=== PATIENT | male | born 1965 | race Caucasian/White ===

== ENCOUNTER 2024-03-13 01:20 | Emergency (ER) | payer BC, SELFPAY ==
[2024-03-13] VITALS (11 sets, daily range): BP systolic 155–192; BP diastolic 110–128; BMI 35.9
--- NOTE | 2024-03-13 01:54 | ED.GENMED ---
History of Present Illness
<Nneka Slaughter DO - Last Filed: 03/13/24 03:34>
General
Chief Complaint: Breathing Problem
Time Seen by Provider: 03/13/24 01:39
History of Present Illness
History of Present Illness:
58-year-old male with history of sleep apnea on CPAP and history of pituitary adenoma presenting to the emergency department for difficulty breathing and chest pressure. Patient reports symptoms started around midnight. He reports pressure across
his chest, difficulty catching his breath. Reports that he has had similar symptoms in the past, which have been attributed to panic/anxiety, however he feels that this is worse than typical. Also notes that his blood pressure has been elevated.
He denies any known history of cardiac disease. He denies any history of blood clot, recent surgery, recent travel. He denies any cough or fever, does note some nasal congestion. He does admit to feeling anxious, however feels that his anxiety is
from having difficulty breathing. Reports that he has not seen a doctor in about 2 years. Denies abdominal pain or GI symptoms. Denies additional acute medical complaints.
Past History
<DO Nathalia Harris Last Filed: 03/13/24 03:34>
Past History
ED Past Medical History: Other (diastasis rectus); Negative Asthma, HTN, Hypercholesterolemia or NIDDM
ED Past Surgical History: None
Social History
Tobacco: Non-smoker
Alcohol: Occasional
Personal:
Living: with family
Phy Exam
<Nneka Slaughter DO - Last Filed: 03/13/24 03:34>
Physical Exam
Physical Exam:
General: Well-appearing, no clinical signs of dehydration, nontoxic, anxious
HEENT: protecting airway
Neck: appears supple
CV: Normal heart rate, regular rhythm, no evidence of cyanosis
Resp: No accessory muscle use, no increased work of breathing, lungs clear to auscultation bilaterally
Abd: Soft and non-distended, no tenderness to palpation, normal bowel sounds
Extremities: No deformities, no swelling, no erythema, pulses and sensation intact
Neuro: alert, no focal neurologic deficit
: deferred
Rectal: deferred
Psych: Normal affect
Skin: Intact
Scores
<Benoit Rose, DO - Last Filed: 03/13/24 06:36>
Heart Failure Risk
Heart Failure Risk Score: Not Applicable
Course
<Nneka Slaughter, DO - Last Filed: 03/13/24 03:34>
Orders/Labs/Results
Orders:
Orders
03/13/24 01:38
Electrocardiogram (*1) Urgent
Reason for Study: Other
Other Reason for Exam: Respiratory Distress
Cardiac Monitoring- Treatment ONCE
EKG- Treatment ONCE
IV Insert/Care/Rem.- Treatment PRN
CR Chest - 2 Views Urgent
Comment:
Reason For Exam: respiratory distress
O2 Therapy [RESP] Urgent
Titrate/Wean O2 to maintain O2 sat greater than (%): 93
Special Instructions: TO MAINTAIN CONTINUOUS O2 SATS >/= 93%
Pulse Ox/cont/shift [RESP] Urgent
Quantity: 1
Special Instructions: continuous pulse ox
03/13/24 01:50
Lorazepam [Ativan] 1 mg IV NOW STA
03/13/24 02:24
COVID-19 Antigen Urgent
Source: Nasal Swab
Complete Blood Count/With Diff Urgent
Comprehensive Metabolic Panel Urgent
D-Dimer Urgent
NT-proBNP Urgent
Troponin I Urgent
03/13/24 05:00
Troponin I Urgent
03/13/24 05:57
HydrALAZINE [Apresoline] 20 mg IV NOW STA
Abnormal Lab Results
03/13/24
02:24
RBC 6.22 H 10^6/uL
(4.70-6.10)
Hgb 20.1 H* g/dL
(13.0-18.0)
Hct 54.7 H %
(39.0-52.0)
MCH 32.3 H pg
(27.0-31.0)
Abs Immat Gran (auto) 0.1 H 10^3/uL
(0-0.05)
Absolute Monos (auto) 1.1 H 10^3/uL
(0.1-0.6)
Immature Gran % 0.7 H %
(0-0.5)
Monocytes % 11.7 H %
(1.7-9.3)
Sodium 133 L mmol/L
(135-145)
Glucose 107 H mg/dl
(70-99)
AST 74 H U/L
(17-59)
ALT 63 H U/L
(0-50)
03/13/24 02:24
03/13/24 02:24
Vital Signs
Initial and Last Documented VS:
Initial Vital Signs
Temp Pulse Resp Pulse Ox
97.8 F 74 20 94
03/13/24 01:33 03/13/24 01:33 03/13/24 01:33 03/13/24 01:33
Last Documented Vital Signs
Temp Pulse Resp BP Pulse Ox
97.8 F 78 17 175/119 95
03/13/24 01:33 03/13/24 06:00 03/13/24 06:00 03/13/24 06:00 03/13/24 06:00
<Benoit Rose, DO - Last Filed: 03/13/24 06:36>
Orders/Labs/Results
Orders:
Orders
03/13/24 01:38
Electrocardiogram (*1) Urgent
Reason for Study: Other
Other Reason for Exam: Respiratory Distress
Cardiac Monitoring- Treatment ONCE
EKG- Treatment ONCE
IV Insert/Care/Rem.- Treatment PRN
CR Chest - 2 Views Urgent
Comment:
Reason For Exam: respiratory distress
O2 Therapy [RESP] Urgent
Titrate/Wean O2 to maintain O2 sat greater than (%): 93
Special Instructions: TO MAINTAIN CONTINUOUS O2 SATS >/= 93%
Pulse Ox/cont/shift [RESP] Urgent
Quantity: 1
Special Instructions: continuous pulse ox
03/13/24 01:50
Lorazepam [Ativan] 1 mg IV NOW STA
03/13/24 02:24
COVID-19 Antigen Urgent
Source: Nasal Swab
Complete Blood Count/With Diff Urgent
Comprehensive Metabolic Panel Urgent
D-Dimer Urgent
NT-proBNP Urgent
Troponin I Urgent
03/13/24 05:00
Troponin I Urgent
03/13/24 05:57
HydrALAZINE [Apresoline] 20 mg IV NOW STA
Abnormal Lab Results
03/13/24
02:24
RBC 6.22 H 10^6/uL
(4.70-6.10)
Hgb 20.1 H* g/dL
(13.0-18.0)
Hct 54.7 H %
(39.0-52.0)
MCH 32.3 H pg
(27.0-31.0)
Abs Immat Gran (auto) 0.1 H 10^3/uL
(0-0.05)
Absolute Monos (auto) 1.1 H 10^3/uL
(0.1-0.6)
Immature Gran % 0.7 H %
(0-0.5)
Monocytes % 11.7 H %
(1.7-9.3)
Sodium 133 L mmol/L
(135-145)
Glucose 107 H mg/dl
(70-99)
AST 74 H U/L
(17-59)
ALT 63 H U/L
(0-50)
03/13/24 02:24
03/13/24 02:24
Vital Signs
Initial and Last Documented VS:
Initial Vital Signs
Temp Pulse Resp Pulse Ox
97.8 F 74 20 94
03/13/24 01:33 03/13/24 01:33 03/13/24 01:33 03/13/24 01:33
Last Documented Vital Signs
Temp Pulse Resp BP Pulse Ox
97.8 F 78 17 175/119 95
03/13/24 01:33 03/13/24 06:00 03/13/24 06:00 03/13/24 06:00 03/13/24 06:00
<Nneka Slaughter DO - Last Filed: 03/13/24 03:34>
MDM/Problems Addressed
MDM/Problems Addressed:
58-year-old male with history of obstructive sleep apnea and pituitary adenoma presenting for shortness of breath and chest pressure, which started around midnight. Vital signs are significant for high blood pressure
On exam patient is in no acute respiratory distress, however does appear anxious. Unremarkable cardiac and pulmonary exam. EKG obtained on his arrival, no acute ischemic abnormality, no arrhythmia. Possible anxiety component. However, patient
does have some risk factors for heart disease, is overweight, currently hypertensive. For this reason will obtain laboratory analysis including troponin, D-dimer. Will obtain chest x-ray pending. Patient requesting anxiety medication. Will
administer Ativan.
03:30 -patient's hemoglobin is elevated, however appears chronic. Notes side effect of the medication he was on for his pituitary adenoma. D-dimer is within normal limits. Initial troponin is detectable, however within normal limits. Chest x-ray
without acute cardiopulmonary disease. Electrolyte panel unremarkable. BNP undetectable, without concern for CHF. On reassessment, blood pressure slightly improved without intervention. Notes improvement after Ativan. On further discussion,
patient reports a lot of stressors at home, and a lot of frustrations that he is endured going through treatments for his pituitary adenoma and infertility. Continue suspect possible anxiety component to symptoms. Given onset of symptoms less than
3 hours prior to arrival, will obtain second troponin. Ultimate plan for outpatient cardiology follow-up.
<Nneka Slaughter, DO - Last Filed: 03/13/24 03:34>
*EKG
Interpreted by ED Provider?: Yes
EKG Intrepretation Date: 03/13/24
EKG Intrepretation Time: 02:19
Interpretation: normal
Comparison EKG: no changes (09/26/20)
Heart Rate: 71
Rate: normal
Rhythm: sinus
Lamar: normal axis
Interval: normal interval
QRS Pattern: normal QRS
Ischemia: no ischemia
*Critical Care Note
Total Time (30-74mins, 75-104mins- exclusive of procedures): Not Applicable
<Benoit Rose, DO - Last Filed: 03/13/24 06:36>
Update Note
Update Note:
Repeat troponin 0.019, no significant change. Patient blood pressure remains hypertensive. Will treat with hydralazine. He is asking for Ativan. Declined to prescribe Ativan at this time, recommending he follow-up with his primary care doctor.
Will give prescription
ED Attending Note
<Nneka Slaughter, DO - Last Filed: 03/13/24 03:34>
-
Portions of this chart may have been created with voice recognition software.� Occasional wrong word or��sound alike� substitutions may have occurred due to the inherent limitations of voice recognition software.
Discharge Plan
Departure
Patient Disposition: Home (Routine Discharge)
Date of Disposition: 03/13/24
Time of Disposition: 06:15
Patient with high blood pressure during this ER visit?: Yes
Condition: Good
Discharge Problem:
Chest pressure, Hypertension
Instructions: Chest Pain DCA Follow Up, BLOOD PRESSURE
Prescriptions:
New
amlodipine 5 mg tablet
5 mg PO DAILY Qty: 30 0RF
No Action
lorazepam 0.5 MG tablet
0.5 mg PO Q4HPRN PRN (Reason: anxiety) Qty: 7 0RF
lorazepam 0.5 MG tablet
0.5 mg PO Q4HPRN PRN (Reason: Anxiety) Qty: 10 0RF
Referrals:
Nina Lowe DO [Family Provider] - Call in 1-3 days for appt
Activity Restrictions/Additional Instructions:
You were seen in the emergency department for chest pressure
You were found to have normal laboratory analysis, EKG, chest x-ray imaging
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
Return to the emergency department for any worsening of your symptoms, or any development of chest pain, difficulty breathing, abdominal pain with persistent vomiting and inability to tolerate food or liquid by mouth (concern for dehydration),
weakness, headache or confusion, fever greater than 100.4, or any additional symptoms that are concerning to you.
Thank you for choosing [facility].
Interventions
Interventions:
*Risk Screen - Suicide Last Done: 03/13/24 01:47
*General Assessment Last Done: 03/13/24 01:47
*Neglect/Abuse Screening Last Done: 03/13/24 01:47
ED- Fall Risk Assessment Last Done: 03/13/24 01:47
*ED COVID-19 Vaccine History Last Done: 03/13/24 01:47
ED- Cardiac Assessment Last Done: 03/13/24 01:47
ED- Pulmonary Assessment Last Done: 03/13/24 01:47
Discharge Date and Time
Print Language: KHMER
[2024-03-13] MEDS: ATIVAN 1 MG IV (01:55)
[2024-03-13 02:59] LABS: % Basophils 0.8 % (0-2); % Immature Granulocytes 0.7 % (0-0.5); % Monocytes 11.7 % (1.7-9.3); % Neutrophils 60.7 % (42.2-75.2); Absolute Basophils 0.1 10^3/uL (0-0.2); Absolute Eosinophils 0.2 10^3/uL (0-0.7); Absolute Immature Granulocytes 0.1 10^3/uL (0-0.05); Absolute Lymphocytes 2.2 10^3/uL (1.2-3.4); Absolute Monocytes 1.1 10^3/uL (0.1-0.6); Absolute Neutrophils 5.5 10^3/uL (1.4-6.5); Hematocrit 54.7 % (39.0-52.0); Hemoglobin 20.1 g/dL (13.0-18.0); Mean Corp Hgb Conc. 36.7 g/dL (33.0-37.0); Mean Corpuscular Hgb 32.3 pg (27.0-31.0); Mean Corpuscular Volume 87.9 fL (80.0-94.0); Mean Platelet Volume 9.5 fL (7.4-10.4); Nucleated Red Blood Cells % 0 % (-); Platelet Count 191 10^3/uL (130-400); Red Blood Cell Count 6.22 10^6/uL (4.70-6.10); Red Cell Dist. Width 13.7 % (11.5-14.5)
[2024-03-13 03:02] LABS: D-Dimer 0.33 ug/mlFEU (0.00-0.50)
[2024-03-13 03:03] LABS: COVID-19 Antigen Negative (Negative)
[2024-03-13 03:07] LABS: ALT (SGPT) 63 U/L (0-50); AST (SGOT) 74 U/L (17-59); Albumin 4.3 g/dl (3.5-5.0); Alkaline Phosphatase 64 U/L (38-126); Blood Urea Nitrogen 18 mg/dl (9-20); Carbon Dioxide 24 mmol/L (22-30); Chloride 101 mmol/L (98-107); Glucose 107 mg/dl (70-99); Potassium 4.2 mmol/L (3.5-5.1); Sodium 133 mmol/L (135-145); Total Bilirubin 0.9 mg/dl (0.2-1.3); Total Protein 7.3 g/dl (6.3-8.2); eGFR > 60.00
[2024-03-13 03:20] LABS: NT-proBNP < 20.0 pg/ml; Troponin I 0.018 ng/ml
[2024-03-13 05:40] LABS: Troponin I 0.019 ng/ml
[2024-03-13] MEDS: APRESOLINE 20 MG IV (06:13)
== END 2024-03-13 07:05 | disposition home or self-care (01) ==
LOC: EMR 01:20
PROVIDERS: Emergency Medicine; EMERGENCY PHYSICIAN Student in an Organized Health Care Education/Training Program; FAMILY PHYSICIAN Family Medicine
DX: R07.89 Other chest pain (principal); R06.09 Other forms of dyspnea; Z11.52 Encounter for screening for COVID-19; I10 Essential (primary) hypertension; D35.2 Benign neoplasm of pituitary gland; G47.30 Sleep apnea, unspecified; F41.9 Anxiety disorder, unspecified; Z88.0 Allergy status to penicillin
CPT/HCPCS: 99284; 96374; 96375; 71046; 80053; 83880; 84484; 85025; 85379; 87811; 93005